=== PATIENT | male | born 1970 | race African-American/Black ===

== ENCOUNTER 2017-10-17 09:47 | Inpatient (IN) | payer OTHER ==
[2017-10-17 10:28] VITALS: BMI 20.5
--- NOTE | 2017-10-17 11:24 | HP ---
COWS - Scale Resting Pulse: 2= [place] 101-120 Sweatin=Flushed/Facial Moisture Restless Observation: 1= Difficult to Sit Still Pupil Size: 0= Normal to Room Light Bone or Joint Aches: 2= Severe Diffuse Aches Runny Nose/ Eye Tearin= Runny Nose/Eyes GI Upset > 30mins: 2= Nausea/Diarrhea Tremor Observation: 2= Slight Tremor Visible Yawning Observation: 2= >3x During Session Anxiety or Irritability: 2=Irritable/Anxious Goose Flesh Skin: 3=Piloerection COWS Score: 20 Admission ROS [facility] - HPI Chief Complaint: I am here to detox off the heroin. Allergies/Adverse Reactions: Allergies Allergy/AdvReac Type Severity Reaction Status Date / Time No Known Allergies Allergy Verified 10/17/17 11:02 History of Present Illness: pt is a 47yr old male with a history of heroin and cocaine dependence seeking detox for treatment. Exam Limitations: No Limitations - Ebola screening Have you traveled outside of the country in the last 21 days: No Have you had contact with anyone from an Ebola affected area: No Have you been sick,other than usual withdrawal symptoms: No Do you have a fever: No - Review of Systems Constitutional: Chills, Diaphoresis, Loss of Appetite, Night Sweats, Unintentional Wgt. Loss EENT: reports: Nose Congestion Respiratory: reports: No Symptoms reported Cardiac: reports: No Symptoms Reported GI: reports: Poor Appetite, Poor Fluid Intake : reports: No Symptoms Reported Musculoskeletal: reports: No Symptoms Reported Integumentary: reports: Flushing, Sweating Neuro: reports: Headache, Tingling, Tremors Endocrine: reports: Excessive Sweating, Flushing, Intolerance to Cold, Intolerance to Heat Hematology: reports: No Symptoms Reported Psychiatric: reports: Judgement Intact, Mood/Affect Appropiate, Orientated x3, Agitated, Anxious Other Systems: Reviewed and Negative Patient History - Patient Medical History Hx Anemia: No Hx Asthma: No Hx Chronic Obstructive Pulmonary Disease (COPD): No Hx Cancer: No Hx Cardiac Disorders: No Hx Congestive Heart Failure: No Hx Hypertension: No Hx Hypercholesterolemia: No Hx Pacemaker: No HX Cerebrovascular Accident: No Hx Seizures: No Hx Dementia: No Hx Diabetes: No Hx Gastrointestinal Disorders: No Hx Liver Disease: No Hx Genitourinary Disorders: No Hx Sexually Transmitted Disorders: No Hx Renal Disease (ESRD): No Hx Thyroid Disease: No Hx Human Immunodeficiency Virus (HIV): Yes (since 1982 not taking any medication ) Hx Hepatitis C: No Hx Depression: No Hx Suicide Attempt: No (denies) Hx Bipolar Disorder: No Hx Schizophrenia: No - Patient Surgical History Past Surgical History: No Hx Neurologic Surgery: No Hx Cataract Extraction: No Hx Cardiac Surgery: No Hx Lung Surgery: No Hx Breast Surgery: No Hx Breast Biopsy: No Hx Abdominal Surgery: No Hx Appendectomy: No Hx Cholecystectomy: No Hx Genitourinary Surgery: No Hx Section: No Hx Orthopedic Surgery: No Anesthesia Reaction: No - PPD History Previous Implant?: Yes Documented Results: Negative w/o proof Implanted On Prior R Admission?: No PPD to be Administered?: Yes - Reproductive History Patient is a Female of Child Bearing Age (11 -55 yrs old): No - Smoking Cessation Smoking history: Current every day smoker Have you smoked in the past 12 months: Yes Aproximately how many cigarettes per day: 2 Hx Chewing Tobacco Use: No Initiated information on smoking cessation: Yes 'Breaking Loose' booklet given: 10/17/17 - Substance & Tx. History Hx Alcohol Use: No Hx Substance Use: Yes Substance Use Type: Cocaine, Heroin Hx Substance Use Treatment: Yes (many years ago) - Substances Abused Heroin Route: Inhalation Frequency: Daily Amount used: 4 bags Age of first use: 12 Date of Last Use: 10/16/17 Cocaine Route: Inhalation Frequency: Daily Amount used: $120 Age of first use: 12 Date of Last Use: 10/10/17 Family Disease History - Family Disease History Family History: Denies Admission Physical Exam S - Vital Signs Vital Signs: Vital Signs - 24 hr 10/17/17 10:25 Temperature 99.1 F Pulse Rate 105 H Respiratory 19 Rate Blood Pressure 106/76 - Physical General Appearance: Yes: Appropriately Dressed, Moderate Distress, Thin, Tremorous, Irritable, Sweating, Anxious HEENTM: Yes: Hearing grossly Normal, Normal ENT Inspection, Normal Voice Respiratory: Yes: Lungs Clear, Normal Breath Sounds, No Respiratory Distress Neck: Yes: No masses,lesions,Nodules Breast: Yes: Within Normal Limits Cardiology: Yes: Regular Rhythm, Regular Rate, S1, S2 Abdominal: Yes: Normal Bowel Sounds, Non Tender, Soft Genitourinary: Yes: Within Normal Limits Back: Yes: Normal Inspection Musculoskeletal: Yes: full range of Motion Extremities: Yes: Normal Capillary Refill, Normal Inspection, Non-Tender, Tremors Neurological: Yes: Fully Oriented, Alert, Normal Response Integumentary: Yes: Normal Color Lymphatic: Yes: Within Normal Limits - Diagnostic (1) Opioid dependence with withdrawal Current Visit: Yes Status: Chronic (2) Cocaine dependence Current Visit: Yes Status: Chronic Qualifiers: Substance use status: uncomplicated Qualified Code(s): F14.20 - Cocaine dependence, uncomplicated (3) Nicotine dependence Current Visit: Yes Status: Chronic Qualifiers: Nicotine product type: cigarettes Substance use status: uncomplicated Qualified Code(s): F17.210 - Nicotine dependence, cigarettes, uncomplicated (4) HIV disease Current Visit: Yes Status: Chronic Comment: not taking any medication Cleared for Admission [facility] - Detox or Rehab [facility] Level of Care: Medically Managed Detox Regimen/Protocol: Methadone [facility] Breath Alcohol Content Breath Alcohol Content: 0 Urine Drug Screen - Results Drug Screen Negative: No Urine Drug Screen Results: OPI-Opiates, BZO-Benzodiazepines, MTD-Methadone
[2017-10-17] MEDS ORDERED: MAGNESIUM HYDROX 2400MG/30ML ORAL SUSPENSION 30 ML CUP PO PRN (11:27)
[2017-10-17] MEDS ORDERED: MENTHOL/PHENOL 1 EACH UD MM PRN (11:27)
[2017-10-17] MEDS ORDERED: guaiFENesin/D-METHORPHAN HB 10 ML UNIT-DOSE CUPS PO PRN (11:27)
[2017-10-17] MEDS ORDERED: MAGNESIUM CITRATE 300 ML BOTTLE PO PRN (11:27)
[2017-10-17] MEDS ORDERED: MAG HYDROX/AL HYDROX/SIMETH 30 ML UNIT-DOSE CUP PO PRN (11:27)
[2017-10-17] MEDS ORDERED: P-EPHED 60MG/TRIPROLIDI 2.5MG TABLET PO PRN (11:27)
[2017-10-17] MEDS ORDERED: LOPERAMIDE HCL 2 MG CAPSULE PO PRN (11:27)
[2017-10-17] MEDS ORDERED: METHADONE HCL 10 MG TABLET (FOR DETOX USE ONLY) PO ONE ×2 (12:26→23:00)
[2017-10-17] MEDS: diazePAM 5 MG TABLET PO PRN ×3 (12:45→22:07)
[2017-10-17] MEDS: NICOTINE POLACRILEX 2 MG GUM BUC PRN (12:47)
[2017-10-17 16:51] LABS: URINE APPEARANCE CLEAR; URINE BILIRUBIN NEGATIVE (NEGATIVE); URINE BLOOD NEGATIVE (NEGATIVE); URINE COLOR YELLOW; URINE GLUCOSE (UA) NEGATIVE (NEGATIVE); URINE KETONE TRACE (NEGATIVE); URINE LEUK ESTERASE NEGATIVE (NEGATIVE); URINE NITRITE NEGATIVE (NEGATIVE); URINE PROTEIN NEGATIVE (NEGATIVE); URINE UROBILINOGEN NEGATIVE mg/dL (0.2-1.0)
[2017-10-17] MEDS: IBUPROFEN 400 MG TABLET (FP) PO PRN (17:11)
[2017-10-17] MEDS: THIAMINE HCL 100 MG TABLET (FP) PO SCH (22:07)
[2017-10-18] MEDS: diazePAM 5 MG TABLET PO PRN ×3 (06:03→22:15)
[2017-10-18] MEDS ORDERED: METHADONE HCL 10 MG TABLET (FOR DETOX USE ONLY) PO ONE (10:00)
[2017-10-18] MEDS: NICOTINE 7 MG/24 HOURS TOPICAL PATCH TD SCH (10:12)
[2017-10-18] MEDS: PRENATAL VITAMINS W/ FOLIC ACID TABLET (FP) PO SCH (10:12)
[2017-10-18 11:07] LABS: CALCIUM 8.6 mg/dL (8.5-10.1); CHLORIDE 107 mmol/L (98-107); POTASSIUM 3.3 mmol/L (3.5-5.1); SODIUM 141 mmol/L (136-145)
[2017-10-18 11:13] LABS: ALBUMIN 3.2 g/dl (3.4-5.0); ALK PHOS 87 U/L (45-117); ANION GAP 10 (8-16); BILIRUBIN,TOTAL 0.6 mg/dL (0.2-1.0); BLOOD UREA NITROGEN 7 mg/dL (7-18); CO2 24 mmol/L (21-32); CREATININE 0.7 mg/dL (0.7-1.3); GLUCOSE,RANDOM 100 mg/dL (74-106); HEMATOCRIT 37.1 % (35.4-49); HEMOGLOBIN 12.3 GM/dL (11.7-16.9); MCH 30.9 pg (25.7-33.7); MCHC 33.2 g/dl (32.0-35.9); MEAN CELL VOLUME 93.2 fl (80-96); PLATELET COUNT 153 K/MM3 (134-434); RBC 3.98 M/mm3 (4.00-5.60); SGOT/AST 39 U/L (15-37); SGPT/ALT 46 U/L (12-78); TOT PROT 7.8 g/dl (6.4-8.2)
--- NOTE | 2017-10-18 13:28 | PN ---
BHS COWS - Scale Resting Pulse: 0= [place] 80 or Below Sweatin= Chills/Flushing Restless Observation: 1= Difficult to Sit Still Pupil Size: 0= Normal to Room Light Bone or Joint Aches: 2= Severe Diffuse Aches Runny Nose/ Eye Tearin= Runny Nose/Eyes GI Upset > 30mins: 2= Nausea/Diarrhea Tremor Observation of Outstretched Hands: 2= Slight Tremor Visible Yawning Observation: 0= None Anxiety or Irritability: 2=Irritable/Anxious Goose Flesh Skin: 0=Smooth Skin COWS Score: 12 BHS Progress Note (SOAP) Subjective: Shakes, sweats, sleep interruption, malaise Objective: 10/18/17 13:28 Vital Signs 10/18/17 10/18/17 10/18/17 06:17 09:44 11:28 Temperature 96.7 F L 96.9 F L 97.1 F L Pulse Rate 69 77 68 Respiratory 16 18 18 Rate Blood Pressure 93/52 88/63 97/64 Laboratory Last Values WBC 11.0 K/mm3 (4.0-10.0) H 10/18/17 05:40 RBC 3.98 M/mm3 (4.00-5.60) L 10/18/17 05:40 Hgb 12.3 GM/dL (11.7-16.9) 10/18/17 05:40 Hct 37.1 % (35.4-49) 10/18/17 05:40 MCV 93.2 fl (80-96) 10/18/17 05:40 MCH 30.9 pg (25.7-33.7) 10/18/17 05:40 MCHC 33.2 g/dl (32.0-35.9) 10/18/17 05:40 RDW 13.0 % (11.9-15.9) 10/18/17 05:40 Plt Count 153 K/MM3 (134-434) 10/18/17 05:40 MPV 11.0 fl (7.5-11.1) 10/18/17 05:40 Sodium 141 mmol/L (136-145) 10/18/17 05:40 Potassium 3.3 mmol/L (3.5-5.1) L 10/18/17 05:40 Chloride 107 mmol/L (98-107) 10/18/17 05:40 Carbon Dioxide 24 mmol/L (21-32) 10/18/17 05:40 Anion Gap 10 (8-16) 10/18/17 05:40 BUN 7 mg/dL (7-18) 10/18/17 05:40 Creatinine 0.7 mg/dL (0.7-1.3) 10/18/17 05:40 Creat Clearance w eGFR > 60 (>60) 10/18/17 05:40 Random Glucose 100 mg/dL (74-106) 10/18/17 05:40 Calcium 8.6 mg/dL (8.5-10.1) 10/18/17 05:40 Total Bilirubin 0.6 mg/dL (0.2-1.0) 10/18/17 05:40 AST 39 U/L (15-37) H 10/18/17 05:40 ALT 46 U/L (12-78) 10/18/17 05:40 Alkaline Phosphatase 87 U/L (45-117) 10/18/17 05:40 Total Protein 7.8 g/dl (6.4-8.2) 10/18/17 05:40 Albumin 3.2 g/dl (3.4-5.0) L 10/18/17 05:40 Urine Color Yellow 10/17/17 14:40 Urine Appearance Clear 10/17/17 14:40 Urine pH 6.0 (5.0-8.0) 10/17/17 14:40 Ur Specific [place] 1.018 (1.001-1.035) 10/17/17 14:40 Urine Protein Negative (NEGATIVE) 10/17/17 14:40 Urine Glucose (UA) Negative (NEGATIVE) 10/17/17 14:40 Urine Ketones Trace (NEGATIVE) H 10/17/17 14:40 Urine Blood Negative (NEGATIVE) 10/17/17 14:40 Urine Nitrite Negative (NEGATIVE) 10/17/17 14:40 Urine Bilirubin Negative (NEGATIVE) 10/17/17 14:40 Urine Urobilinogen Negative mg/dL (0.2-1.0) 10/17/17 14:40 Ur Leukocyte Esterase Negative (NEGATIVE) 10/17/17 14:40 RPR Titer Nonreactive (NONREACTIVE) 10/18/17 05:40 Labs noted Assessment: 10/18/17 13:28 withdrawal sx Plan: Continue detox
--- NOTE | 2017-10-18 13:44 | EKG ---
Test Reason : Blood Pressure : / mmHG Vent. Rate : 097 BPM Atrial Rate : 097 BPM P-R Int : 132 ms QRS Dur : 082 ms QT Int : 344 ms P-R-T Axes : 066 026 051 degrees QTc Int : 436 ms NORMAL SINUS RHYTHM NORMAL ECG NO PREVIOUS ECGS AVAILABLE Confirmed by JORGE RÍOS MD ([id number]) on 10/18/2017 1:44:02 PM Referred By: Confirmed By:JORGE RÍOS MD
[2017-10-18] MEDS: ACETAMINOPHEN 325 MG TABLET (FP) PO PRN (17:47)
[2017-10-18] MEDS: THIAMINE HCL 100 MG TABLET (FP) PO SCH (22:14)
[2017-10-19] MEDS: diazePAM 5 MG TABLET PO PRN ×4 (05:06→22:10)
[2017-10-19] MEDS ORDERED: METHADONE HCL 5 MG TABLET (FOR DETOX USE ONLY) PO ONE (10:00)
[2017-10-19] MEDS: PRENATAL VITAMINS W/ FOLIC ACID TABLET (FP) PO SCH (10:05)
[2017-10-19] MEDS: NICOTINE 7 MG/24 HOURS TOPICAL PATCH TD SCH (10:06)
--- NOTE | 2017-10-19 13:48 | PN ---
BHS COWS - Scale Resting Pulse: 0= [place] 80 or Below Sweatin=Flushed/Facial Moisture Restless Observation: 1= Difficult to Sit Still Pupil Size: 0= Normal to Room Light Bone or Joint Aches: 1= Mild Discomfort Runny Nose/ Eye Tearin= Runny Nose/Eyes GI Upset > 30mins: 2= Nausea/Diarrhea Tremor Observation of Outstretched Hands: 2= Slight Tremor Visible Yawning Observation: 1= 1-2x During Session Anxiety or Irritability: 2=Irritable/Anxious Goose Flesh Skin: 0=Smooth Skin COWS Score: 13 BHS Progress Note (SOAP) Subjective: Sweating,anxiety,tremors,interrupted sleep,restless,body aches. Objective: 10/19/17 13:47 Vital Signs - 8 hr 10/19/17 10/19/17 06:16 09:54 Temperature 96.5 F L 97.0 F L Pulse Rate 91 H 79 Respiratory 16 18 Rate Blood Pressure 113/76 103/73 Laboratory Tests 10/17/17 10/18/17 10/18/17 14:40 05:40 05:40 WBC 11.0 H RBC 3.98 L Hgb 12.3 Hct 37.1 MCV 93.2 MCH 30.9 MCHC 33.2 RDW 13.0 Plt Count 153 MPV 11.0 Sodium 141 Potassium 3.3 L Chloride 107 Carbon Dioxide 24 Anion Gap 10 BUN 7 Creatinine 0.7 Creat Clearance w eGFR > 60 Random Glucose 100 Calcium 8.6 Total Bilirubin 0.6 AST 39 H ALT 46 Alkaline Phosphatase 87 Total Protein 7.8 Albumin 3.2 L Urine Color Yellow Urine Appearance Clear Urine pH 6.0 Ur Specific [place] 1.018 Urine Protein Negative Urine Glucose (UA) Negative Urine Ketones Trace H Urine Blood Negative Urine Nitrite Negative Urine Bilirubin Negative Urine Urobilinogen Negative Ur Leukocyte Esterase Negative RPR Titer 10/18/17 05:40 WBC RBC Hgb Hct MCV MCH MCHC RDW Plt Count MPV Sodium Potassium Chloride Carbon Dioxide Anion Gap BUN Creatinine Creat Clearance w eGFR Random Glucose Calcium Total Bilirubin AST ALT Alkaline Phosphatase Total Protein Albumin Urine Color Urine Appearance Urine pH Ur Specific [place] Urine Protein Urine Glucose (UA) Urine Ketones Urine Blood Urine Nitrite Urine Bilirubin Urine Urobilinogen Ur Leukocyte Esterase RPR Titer Nonreactive labs noted,k-dur ordered Assessment: 10/19/17 13:48 Withdrawal sx. Plan: Continue detox
[2017-10-19] MEDS: POTASSIUM CHLORIDE TABS 20 MEQ TABLET.ER (FP) PO SCH ×2 (14:48→22:08)
[2017-10-19] MEDS: THIAMINE HCL 100 MG TABLET (FP) PO SCH (22:08)
[2017-10-20] MEDS: diazePAM 5 MG TABLET PO PRN ×2 (05:28→10:06)
[2017-10-20] MEDS ORDERED: METHADONE HCL 5 MG TABLET (FOR DETOX USE ONLY) PO ONE (10:00)
[2017-10-20] MEDS: PRENATAL VITAMINS W/ FOLIC ACID TABLET (FP) PO SCH (10:05)
[2017-10-20] MEDS: POTASSIUM CHLORIDE TABS 20 MEQ TABLET.ER (FP) PO SCH ×2 (10:05→22:07)
[2017-10-20] MEDS: NICOTINE 7 MG/24 HOURS TOPICAL PATCH TD SCH (10:06)
--- NOTE | 2017-10-20 11:00 | PN ---
BHS Progress Note (SOAP) Subjective: Stuffy nose, back pain, nausea, sweating Objective: 10/20/17 10:55 Last Vital Signs Temp Pulse Resp BP Pulse Ox 96.6 F L 77 16 99/63 10/20/17 06:04 10/20/17 06:04 10/20/17 06:04 10/20/17 06:04 b/p 99/63 (hypotension) Laboratory Tests 10/17/17 10/18/17 10/18/17 14:40 05:40 05:40 WBC 11.0 H RBC 3.98 L Hgb 12.3 Hct 37.1 MCV 93.2 MCH 30.9 MCHC 33.2 RDW 13.0 Plt Count 153 MPV 11.0 Sodium 141 Potassium 3.3 L Chloride 107 Carbon Dioxide 24 Anion Gap 10 BUN 7 Creatinine 0.7 Creat Clearance w eGFR > 60 Random Glucose 100 Calcium 8.6 Total Bilirubin 0.6 AST 39 H ALT 46 Alkaline Phosphatase 87 Total Protein 7.8 Albumin 3.2 L Urine Color Yellow Urine Appearance Clear Urine pH 6.0 Ur Specific [place] 1.018 Urine Protein Negative Urine Glucose (UA) Negative Urine Ketones Trace H Urine Blood Negative Urine Nitrite Negative Urine Bilirubin Negative Urine Urobilinogen Negative Ur Leukocyte Esterase Negative RPR Titer 10/18/17 05:40 WBC RBC Hgb Hct MCV MCH MCHC RDW Plt Count MPV Sodium Potassium Chloride Carbon Dioxide Anion Gap BUN Creatinine Creat Clearance w eGFR Random Glucose Calcium Total Bilirubin AST ALT Alkaline Phosphatase Total Protein Albumin Urine Color Urine Appearance Urine pH Ur Specific [place] Urine Protein Urine Glucose (UA) Urine Ketones Urine Blood Urine Nitrite Urine Bilirubin Urine Urobilinogen Ur Leukocyte Esterase RPR Titer Nonreactive Labs noted: wbc 11, k 3.3 Assessment: 10/20/17 10:56 Withdrawal symptoms Noted with hypotension, leukocytosis and hypokalemia Plan: Continue detox Hypotension: asymptomatic, encouraged to drink lots of water for hydration Leukocytosis: asymptomatic for infection, repeat CBC Hypokalemia: replenished, repeat serum K level
[2017-10-20] MEDS: hydrOXYzine PAMOATE 50 MG CAPSULE (FP) PO PRN (19:19)
[2017-10-20] MEDS: NICOTINE POLACRILEX 2 MG GUM BUC PRN (19:55)
[2017-10-20] MEDS: THIAMINE HCL 100 MG TABLET (FP) PO SCH (22:07)
[2017-10-20] MEDS: ACETAMINOPHEN 325 MG TABLET (FP) PO PRN (22:51)
[2017-10-21] MEDS: hydrOXYzine PAMOATE 50 MG CAPSULE (FP) PO PRN ×3 (05:39→22:20)
[2017-10-21] MEDS ORDERED: METHADONE HCL 10 MG TABLET (FOR DETOX USE ONLY) PO ONE (10:00)
[2017-10-21] MEDS: POTASSIUM CHLORIDE TABS 20 MEQ TABLET.ER (FP) PO SCH ×2 (10:12→22:20)
[2017-10-21] MEDS: NICOTINE 7 MG/24 HOURS TOPICAL PATCH TD SCH (10:12)
[2017-10-21] MEDS: PRENATAL VITAMINS W/ FOLIC ACID TABLET (FP) PO SCH (10:12)
[2017-10-21 10:25] LABS: HEMATOCRIT 37.6 % (35.4-49); HEMOGLOBIN 12.1 GM/dL (11.7-16.9); MCH 29.5 pg (25.7-33.7); MCHC 32.1 g/dl (32.0-35.9); MEAN CELL VOLUME 92.1 fl (80-96); MEAN PLT VOLUME 10.2 fl (7.5-11.1); PLATELET COUNT 215 K/MM3 (134-434); RBC 4.08 M/mm3 (4.00-5.60); RDW 13.3 % (11.9-15.9); WHITE BLOOD COUNT 4.7 K/mm3 (4.0-10.0)
--- NOTE | 2017-10-21 11:36 | PN ---
BHS Progress Note (SOAP) Subjective: Sweating, tremor, chills, anxious Objective: 10/21/17 11:33 Last Vital Signs Temp Pulse Resp BP Pulse Ox 97.1 F L 92 H 18 109/70 10/21/17 10:06 10/21/17 10:06 10/21/17 10:06 10/21/17 10:06 Laboratory Tests 10/17/17 10/18/17 10/18/17 14:40 05:40 05:40 WBC 11.0 H RBC 3.98 L Hgb 12.3 Hct 37.1 MCV 93.2 MCH 30.9 MCHC 33.2 RDW 13.0 Plt Count 153 MPV 11.0 Neutrophils % Lymphocytes % Sodium 141 Potassium 3.3 L Chloride 107 Carbon Dioxide 24 Anion Gap 10 BUN 7 Creatinine 0.7 Creat Clearance w eGFR > 60 Random Glucose 100 Calcium 8.6 Total Bilirubin 0.6 AST 39 H ALT 46 Alkaline Phosphatase 87 Total Protein 7.8 Albumin 3.2 L Urine Color Yellow Urine Appearance Clear Urine pH 6.0 Ur Specific [place] 1.018 Urine Protein Negative Urine Glucose (UA) Negative Urine Ketones Trace H Urine Blood Negative Urine Nitrite Negative Urine Bilirubin Negative Urine Urobilinogen Negative Ur Leukocyte Esterase Negative RPR Titer 10/18/17 10/21/17 10/21/17 05:40 08:00 08:00 WBC 4.7 D RBC 4.08 Hgb 12.1 Hct 37.6 MCV 92.1 MCH 29.5 MCHC 32.1 RDW 13.3 Plt Count 215 D MPV 10.2 Neutrophils % No Result Required. Lymphocytes % No Result Required. Sodium Potassium 3.6 Chloride Carbon Dioxide Anion Gap BUN Creatinine Creat Clearance w eGFR Random Glucose Calcium Total Bilirubin AST ALT Alkaline Phosphatase Total Protein Albumin Urine Color Urine Appearance Urine pH Ur Specific [place] Urine Protein Urine Glucose (UA) Urine Ketones Urine Blood Urine Nitrite Urine Bilirubin Urine Urobilinogen Ur Leukocyte Esterase RPR Titer Nonreactive Labs noted: wbc now 4.7 (was 11), K 3.6 (was 3.3) Assessment: 10/21/17 11:34 Withdrawal symptoms F/U on Leukocytosis and hypokalemia Plan: Continue detox Leukocytosis: resolved Hypokalemia: resolved, continue K Dur supplement
[2017-10-21 13:33] LABS: ANISOCYTOSIS 2+; MACROCYTOSIS 2+; PLATELET ESTIMATE NORMAL
[2017-10-21] MEDS: IBUPROFEN 400 MG TABLET (FP) PO PRN (14:16)
[2017-10-21] MEDS: THIAMINE HCL 100 MG TABLET (FP) PO SCH (22:20)
[2017-10-22] MEDS: IBUPROFEN 400 MG TABLET (FP) PO PRN (03:11)
[2017-10-22] MEDS: hydrOXYzine PAMOATE 50 MG CAPSULE (FP) PO PRN (03:11)
[2017-10-22] MEDS ORDERED: METHADONE HCL 5 MG TABLET (FOR DETOX USE ONLY) PO ONE (06:00)
[2017-10-22 06:46] VITALS: BP 101/73; PULSE 98; TEMP 97.6
== END 2017-10-22 09:16 | disposition other institution (70) | DRG 773 ==
LOC: YASAS 09:47 → Y3N 11:56
PROVIDERS: ADMIT Internal Medicine; ATTEND Internal Medicine
PROC: HZ2ZZZZ Detoxification Services for Substance Abuse Treatment (ICD-10-PCS; principal; 2017-10-17)
DX: F11.23 Opioid dependence with withdrawal (principal); F14.20 Cocaine dependence, uncomplicated; F17.210 Nicotine dependence, cigarettes, uncomplicated; F19.282 Other psychoactive substance dependence with psychoactive substance-induced sleep disorder; F19.24 Other psychoactive substance dependence with psychoactive substance-induced mood disorder; E87.6 Hypokalemia; I95.9 Hypotension, unspecified; D72.829 Elevated white blood cell count, unspecified; Z21 Asymptomatic human immunodeficiency virus [HIV] infection status
CPT/HCPCS: 36415; 80053; 81003; 84132; 85025; 85027; 86593; 93005; 93010

== ENCOUNTER 2017-10-22 10:30 | Inpatient (IN) | payer OTHER ==
[2017-10-22 10:59] VITALS: BMI 21.1
--- NOTE | 2017-10-22 15:35 | HP ---
[facility] Rehab Assess/Revision - Admission History Admitted to Rehab from: [facility] Date of Admission to Rehab: 10/22/17 - Vital signs Vital Signs: Vital Signs Period Temp Pulse Resp BP Sys/Shafer Pulse Ox Last 24 Hr 99 F 112 18 100/60 - Findings Detox History & Physical reviewed: Yes Concur with findings: Yes Inpatient Rehab Admission - Initial Determination Are CD services needed?: Yes Free of communicable disease: Yes Not in need of hospitalization: Yes - Rehab Admission Criteria Previous failed treatment: Yes Poor recovery environment: Yes Patient is meeting Inpatient Rehab admission criteria:: Yes
[2017-10-22] MEDS ORDERED: hydrOXYzine PAMOATE 50 MG CAPSULE (FP) PO PRN (15:37)
[2017-10-22] MEDS ORDERED: ACETAMINOPHEN 325 MG TABLET (FP) PO PRN (15:37)
[2017-10-22] MEDS ORDERED: MAGNESIUM CITRATE 300 ML BOTTLE PO PRN (15:37)
[2017-10-22] MEDS ORDERED: MAGNESIUM HYDROX 2400MG/30ML ORAL SUSPENSION 30 ML CUP PO PRN (15:37)
[2017-10-22] MEDS ORDERED: P-EPHED 60MG/TRIPROLIDI 2.5MG TABLET PO PRN (15:37)
[2017-10-22] MEDS ORDERED: MAG HYDROX/AL HYDROX/SIMETH 30 ML UNIT-DOSE CUP PO PRN (15:37)
[2017-10-22] MEDS ORDERED: MENTHOL/PHENOL 1 EACH UD MM PRN (15:37)
[2017-10-22] MEDS ORDERED: LOPERAMIDE HCL 2 MG CAPSULE PO PRN (15:37)
[2017-10-22] MEDS ORDERED: guaiFENesin/D-METHORPHAN HB 10 ML UNIT-DOSE CUPS PO PRN (15:37)
[2017-10-22] MEDS ORDERED: IBUPROFEN 400 MG TABLET (FP) PO PRN (15:37)
[2017-10-22] MEDS ORDERED: THIAMINE HCL 100 MG TABLET (FP) PO SCH (22:00)
[2017-10-23 00:17] LABS: URINE APPEARANCE TURBID; URINE BILIRUBIN NEGATIVE (NEGATIVE); URINE BLOOD NEGATIVE (NEGATIVE); URINE COLOR AMBER; URINE GLUCOSE (UA) NEGATIVE (NEGATIVE); URINE KETONE NEGATIVE (NEGATIVE); URINE LEUK ESTERASE NEGATIVE (NEGATIVE); URINE NITRITE NEGATIVE (NEGATIVE)
[2017-10-23 00:30] LABS: URINE PROTEIN 1+ (NEGATIVE)
[2017-10-23 01:08] LABS: CALCIUM OXALATE CRYSTALS RARE /hpf (NONE SEEN); EPI CELLS RARE /HPF (FEW); URINE BACTERIA RARE /hpf (NONE SEEN); URINE MUCUS MANY
[2017-10-23 07:00] VITALS: BP 111/70; PULSE 80; TEMP 97.6
--- NOTE | 2017-10-23 09:49 | HP ---
Psychiatrist Admission - Data Date of interview: 10/23/17 Identifying data: This is the first [facility] admission for this 47 years old male, father of a 31 years old daughter, unemployed on public assistance, homeless Medical History: Significant for HIV diagnosed in 1982. Smokes 2 cigarettes daily Psychiatric History: Denies history of previous psychiatric treatment Physical/Sexual Abuse/Trauma History: Denies history of verbal, physical or sexual abuse as well as DV relationship Additional Comment: Denies criminal history Vital Signs: Vital Signs - 24 hr 10/22/17 10/23/17 10/23/17 10:58 00:30 07:00 Temperature 99 F 97.6 F Pulse Rate 112 H 80 Respiratory 18 18 18 Rate Blood Pressure 100/60 111/70 Allergies/Adverse Reactions: Allergies Allergy/AdvReac Type Severity Reaction Status Date / Time No Known Allergies Allergy Verified 10/22/17 15:26 Date of last physical exam: 10/17/17 Concur with the findings of this exam: Yes - Substance Abuse/Tx History Hx Alcohol Use: No Hx Substance Use: Yes Substance Use Type: Cocaine (Started using cocaine at age 12, consumes $25 worth daily. Last used on 10/10/17), Heroin (Started using heroin at age 12, consumes 4 bags daily. Last used on 10/16/17) Hx Substance Use Treatment: Yes (one previous inpt deto. This is first inpt rehab admission) Mental Status Exam - Mental Status Exam Alert and Oriented to: Time, Place, Person Cognitive Function: Fair Patient Appearance: Well Groomed Mood: Depressed Affect: Appropriate Patient Behavior: Cooperative Speech Pattern: Clear Voice Loudness: Normal Thought Process: Intact, Goal Oriented Thought Disorder: Not Present Hallucinations: Denies Suicidal Ideation: Denies Homicidal Ideation: Denies Insight/Judgement: Fair Sleep: Poorly Appetite: Good Muscle strength/Tone: Normal Gait/Station: Normal Psychiatric Findings - Problem List ([place] 1, 2,3) (1) Opioid dependence Current Visit: Yes Status: Acute (2) Cocaine dependence Current Visit: No Status: Acute Qualifiers: (3) Nicotine dependence Current Visit: No Status: Chronic Qualifiers: (4) Substance induced mood disorder Current Visit: Yes Status: Acute (5) Substance-induced sleep disorder Current Visit: Yes Status: Acute (6) HIV disease Current Visit: No Status: Chronic Comment: not taking any medication - Initial Treatment Plan Initial Treatment Plan: Monitor progress
[2017-10-23] MEDS ORDERED: NICOTINE 14 MG/24 HOURS TOPICAL PATCH TD SCH (10:00)
[2017-10-23] MEDS ORDERED: PRENATAL VITAMINS W/ FOLIC ACID TABLET (FP) PO SCH (10:00)
== END 2017-10-23 11:15 | disposition left against medical advice (07) | DRG 770 ==
LOC: YASAS 10:30 → Y3W 15:38
PROVIDERS: ADMIT Psychiatry & Neurology Psychiatry; ATTEND Psychiatry & Neurology Psychiatry
PROC: HZ42ZZZ Group Counseling for Substance Abuse Treatment, Cognitive-Behavioral (ICD-10-PCS; principal; 2017-10-22)
DX: F11.20 Opioid dependence, uncomplicated (principal); F14.20 Cocaine dependence, uncomplicated; F17.210 Nicotine dependence, cigarettes, uncomplicated; F19.24 Other psychoactive substance dependence with psychoactive substance-induced mood disorder; F19.282 Other psychoactive substance dependence with psychoactive substance-induced sleep disorder; Z21 Asymptomatic human immunodeficiency virus [HIV] infection status
CPT/HCPCS: 81003; 81015